=== PATIENT | female | born 1985 | race Caucasian/White ===

== ENCOUNTER 2023-10-18 13:46 | Emergency (ER) | payer BC, MEDICAID ==
[~2023-10-18] VITALS: Ht 167.6 cm; Wt 66.0 kg
[2023-10-18 13:57] VITALS: TEMP 98.3; O2SAT 100
[2023-10-18] MEDS: KETOROLAC 30MG/ML VIAL IV STA (14:17)
[2023-10-18] MEDS: SODIUM CHLORIDE 0.9% 1,000 ML IV ONE ×2 (14:45)
[2023-10-18] MEDS: ONDANSETRON HCL 4MG/2ML INJ IV STA (14:45)
[2023-10-18 15:42] LABS: HEMATOCRIT. 42.9 % (36.0-48.0); HEMOGLOBIN. 14.4 g/dL (12.0-16.0); MEAN CORPUSCULAR HEMOGLOBIN 36.1 pg (28.0-32.0); MEAN CORPUSCULAR HGB CONC 33.5 g/dL (31.0-37.0); MEAN CORPUSCULAR VOLUME 107.6 fL (81.0-99.0); MEAN PLATELET VOLUME 8.7 fl (7.4-10.4); PLATELET 120 x1000/uL (130-400); RED BLOOD CELL COUNT 3.99 mill/uL (4.2-5.4); RED CELL DISTRIBUTION WIDTH 13.4 % (11.6-14.6)
[2023-10-18 15:43] LABS: DIFFERENTIAL COMMENT 1
[2023-10-18 15:46] LABS: CHLORIDE 95 mEq/L (98-107); POTASSIUM 4.3 mEq/L (3.5-5.1); SODIUM 130 mEq/L (136-145)
[2023-10-18 15:47] LABS: CARBON DIOXIDE 15 mEq/L (21-32)
[2023-10-18 15:52] LABS: CREATININE 1.1 mg/dL (0.6-1.0)
[2023-10-18 15:53] LABS: GLUCOSE 128 mg/dL (70-105); UREA NITROGEN BLOOD 10 mg/dL (9-23)
[2023-10-18 15:54] LABS: ALANINE AMINOTRANSFERASE 82 IU/L (10-49); ALBUMIN 5.8 g/dL (3.2-4.8); ASPARTATE AMINOTRANSFERASE 106 IU/L (<34)
[2023-10-18 15:55] LABS: BILIRUBIN DIRECT 2.1 mg/dL (<=3.0); BILIRUBIN TOTAL 4.1 mg/dL (0.1-1.0)
[2023-10-18 15:58] LABS: HCG SCREEN NEGATIVE
[2023-10-18 16:07] LABS: ETHANOL BLOOD < 10 mg/dL (<10)
[2023-10-18 16:50] LABS: CLARITY URINE CLOUDY (CLEAR); COLOR URINE ORANGE (YELLOW); GLUCOSE URINE NEGATIVE (NEGATIVE); KETONES URINE 4+ (NEGATIVE); LEUKOCYTE ESTERASE URINE TRACE (NEGATIVE); NITRITE URINE POSITIVE (NEGATIVE); OCCULT BLOOD URINE 2+ (NEGATIVE); PROTEIN URINE 3+ (NEGATIVE); SPECIFIC GRAVITY URINE 1.024 (1.005-1.030)
[2023-10-18 17:08] LABS: *AMPHETAMINES SCREEN URINE NEGATIVE (NEGATIVE)
[2023-10-18 17:09] LABS: *BARBITURATES SCREEN URINE NEGATIVE (NEGATIVE); *BENZODIAZEPINES SCREEN URINE NEGATIVE (NEGATIVE); *COCAINE SCREEN URINE NEGATIVE (NEGATIVE); CANNABINOID URINE SCREEN PRESUMPTIVE POSITIVE (NEGATIVE); ECSTASY MDMA SCREEN URINE NEGATIVE (NEGATIVE); METHADONE URINE SCREEN NEGATIVE (NEGATIVE); OPIATES URINE SCREEN NEGATIVE (NEGATIVE); PHENCYCLIDINE URINE SCREEN NEGATIVE (NEGATIVE)
[2023-10-18 17:20] LABS: PLATELET ESTIMATE DECREASED
[2023-10-18] MEDS: SODIUM CHLORIDE 0.9% 500 ML IV ONE (17:30)
[2023-10-18 17:36] LABS: BACTERIA URINE 4+; SQUAMOUS EPITHELIAL CELL URINE 2+ /lpf (RARE/1+)
[2023-10-18 17:37] LABS: WBC URINE 0-2 /hpf (0-2)
[2023-10-18] MEDS: KETOROLAC 30MG/ML VIAL IV ONE (18:27)
[2023-10-18] MEDS: CEFTRIAXONE 1GM/50ML 50 ML IV ONE (18:33)
[2023-10-18 21:00] VITALS: BP 132/80; PULSE 113; RESP 24; O2SAT 99
== END 2023-10-18 21:36 | disposition left against medical advice (07) ==
LOC: ER 13:53 → EDBEDREQ 18:50 → EDBEDREQTM 18:50 → ER 21:36
DX: A41.9 Sepsis, unspecified organism (principal); R65.20 Severe sepsis without septic shock; N10 Acute pyelonephritis; E86.0 Dehydration
CPT/HCPCS: 80076; 80305; 80048; 81003; 80320; 84703; 83605; 83690; 85025; 36415; 71045; 76705; 93005; 96361; 96374; 96375; 99291; J0696; J1885; J2405; J7040; J7030; Z7610; G0480

== ENCOUNTER 2023-10-19 16:31 | Inpatient (IN) | payer BC, MEDICAID ==
[~2023-10-19] VITALS: Ht 165.1 cm; Wt 64.9 kg
[2023-10-19] MEDS ORDERED: ONDANSETRON HCL 4MG/2ML INJ IV ONE (18:15)
[2023-10-19] MEDS ORDERED: CEFTRIAXONE 1GM/50ML 50 ML IV ONE (18:15)
[2023-10-19 18:25] LABS: BASOPHILS % 0.3 % (0.0-2.0); DIFFERENTIAL COMMENT 0; EOSINOPHILS % 0.3 % (0.0-5.0); HEMATOCRIT. 38.8 % (36.0-48.0); HEMOGLOBIN. 13.3 g/dL (12.0-16.0); LYMPHOCYTES % 16.6 % (20.0-50.0); MEAN CORPUSCULAR HEMOGLOBIN 35.9 pg (28.0-32.0); MEAN CORPUSCULAR HGB CONC 34.2 g/dL (31.0-37.0); MEAN CORPUSCULAR VOLUME 104.7 fL (81.0-99.0); MEAN PLATELET VOLUME 9.7 fl (7.4-10.4); MONOCYTES % 10.8 % (2.0-8.0); PLATELET 125 x1000/uL (130-400); RED BLOOD CELL COUNT 3.71 mill/uL (4.2-5.4); RED CELL DISTRIBUTION WIDTH 13.4 % (11.6-14.6); WHITE BLOOD COUNT 7.2 x1000/uL (4.5-11.0)
[2023-10-19 18:33] LABS: CHLORIDE 96 mEq/L (98-107); POTASSIUM 3.2 mEq/L (3.5-5.1); SODIUM 132 mEq/L (136-145)
[2023-10-19 18:35] LABS: CALCIUM 10.4 mg/dL (8.7-10.4); CARBON DIOXIDE 25 mEq/L (21-32)
[2023-10-19 18:36] LABS: HCG SCREEN NEGATIVE
[2023-10-19 18:40] LABS: CREATININE 0.7 mg/dL (0.6-1.0); GLUCOSE 85 mg/dL (70-105); UREA NITROGEN BLOOD 11 mg/dL (9-23)
[2023-10-19 18:42] LABS: ALANINE AMINOTRANSFERASE 77 IU/L (10-49); ALBUMIN 5.4 g/dL (3.2-4.8); ASPARTATE AMINOTRANSFERASE 175 IU/L (<34); BILIRUBIN DIRECT 0.9 mg/dL (<=3.0); BILIRUBIN TOTAL 2.2 mg/dL (0.1-1.0); PROTEIN TOTAL 8.2 g/dL (6.0-8.3)
[2023-10-19] MEDS ORDERED: NITROGLYCERIN 0.4MG TABLET SL SL PRN (20:45)
[2023-10-19] MEDS ORDERED: MAGNESIUM/ALUMINUM HYDROXIDE/SIMETHICONE 30ML UDC PO PRN (20:45)
[2023-10-19] MEDS ORDERED: GUAIFENESIN 200MG/10ML SUGAR FREE UDC PO PRN (20:45)
[2023-10-19] MEDS ORDERED: KETOROLAC 15MG/ML VIAL IV PRN (20:45)
[2023-10-19] MEDS ORDERED: DOCUSATE SODIUM 100MG CAPSULE PO PRN (20:45)
[2023-10-19] MEDS ORDERED: ACETAMINOPHEN 325MG TABLET PO PRN ×2 (20:45)
[2023-10-19] MEDS ORDERED: IPRATROPIUM/ALBUTEROL 0.5-3(2.5)MG/3ML NEB NEB PRN (20:45)
[2023-10-19] MEDS ORDERED: CLONIDINE 0.1MG TABLET PO PRN (20:45)
[2023-10-19] MEDS ORDERED: ONDANSETRON HCL 4MG/2ML INJ IV PRN (20:45)
[2023-10-19] MEDS: DEXT 5%/LACTATED RINGERS 1,000 ML IV SCH (21:00)
[2023-10-19] MEDS ORDERED: ZOLPIDEM TARTRATE 5MG TABLET PO PRN (21:00)
[2023-10-19] MEDS: SODIUM CHLORIDE 0.9% 1,000 ML IV ONE (22:20)
[2023-10-19] MEDS: ENOXAPARIN 40MG/0.4ML SYR SUBCUT SCH (22:20)
[2023-10-19] MEDS: PANTOPRAZOLE SODIUM 40 MG/VIAL IV SCH (22:33)
[2023-10-19] MEDS: ONDANSETRON HCL 4MG/2ML INJ IV NR (22:33)
[2023-10-19 23:12] LABS: CLARITY URINE CLOUDY (CLEAR); COLOR URINE DARK YELLOW (YELLOW); GLUCOSE URINE NEGATIVE (NEGATIVE); KETONES URINE 3+ (NEGATIVE); LEUKOCYTE ESTERASE URINE 1+ (NEGATIVE); NITRITE URINE NEGATIVE (NEGATIVE); OCCULT BLOOD URINE NEGATIVE (NEGATIVE); PROTEIN URINE 2+ (NEGATIVE); SPECIFIC GRAVITY URINE 1.023 (1.005-1.030)
[2023-10-19 23:30] LABS: BACTERIA URINE 4+; RBC URINE 0-2 /hpf (0-2); SQUAMOUS EPITHELIAL CELL URINE 2+ /lpf (RARE/1+)
[2023-10-19 23:38] LABS: *AMPHETAMINES SCREEN URINE NEGATIVE (NEGATIVE); *BARBITURATES SCREEN URINE NEGATIVE (NEGATIVE); *BENZODIAZEPINES SCREEN URINE NEGATIVE (NEGATIVE)
[2023-10-19 23:39] LABS: *COCAINE SCREEN URINE NEGATIVE (NEGATIVE); CANNABINOID URINE SCREEN PRESUMPTIVE POSITIVE (NEGATIVE); ECSTASY MDMA SCREEN URINE NEGATIVE (NEGATIVE); METHADONE URINE SCREEN NEGATIVE (NEGATIVE); OPIATES URINE SCREEN NEGATIVE (NEGATIVE); PHENCYCLIDINE URINE SCREEN NEGATIVE (NEGATIVE)
[2023-10-19] MEDS: CEFTRIAXONE 1GM/50ML 50 ML IV NR (23:45)
[2023-10-19] MEDS: IOHEXOL-350 100 ML BOTTLE ONE (23:46)
[2023-10-20] VITALS: BP 123/83; PULSE 78; RESP 16; TEMP 36.114; O2SAT 97
[2023-10-20] LABS: IRON 231 ug/dL (50-170)
[2023-10-20 00:01] LABS: TRIGLYCERIDE 111 mg/dL (0-150)
[2023-10-20 00:02] LABS: CHOLESTEROL 246 mg/dL (<200); LDL CHOLESTEROL 145 mg/dL (5-100)
[2023-10-20 00:03] LABS: HDL CHOLESTEROL 73 mg/dL (>65); TOTAL IRON BINDING CAPACITY 237 ug/dl (250-425)
[2023-10-20 00:06] LABS: T4 FREE 1.53 ng/dL (0.89-1.76); THYROID STIMULATING HORMONE 1.11 uIU/mL (0.55-4.78)
[2023-10-20 00:16] LABS: ETHANOL BLOOD < 10 mg/dL (<10)
[2023-10-20 00:19] LABS: VITAMIN B12 SERUM 1190 pg/mL (211-911)
[2023-10-20 01:35] VITALS: BP 123/83; PULSE 86; RESP 17; TEMP 36.1956
[2023-10-20 04:00] VITALS: BP 118/78; PULSE 78; RESP 16; TEMP 36.50292; O2SAT 100
[2023-10-20] MEDS ORDERED: POTASSIUM CHLORIDE 20 MEQ in DEXT 5% WATER 90 ML IV ONE (06:15)
[2023-10-20] MEDS ORDERED: POTASSIUM CHLORIDE 20MEQ/PACKET PO NR (06:15)
[2023-10-20 07:35] LABS: BASOPHILS % 0.5 % (0.0-2.0); DIFFERENTIAL COMMENT 0; EOSINOPHILS % 1.6 % (0.0-5.0); HEMATOCRIT. 32.5 % (36.0-48.0); HEMOGLOBIN. 11.1 g/dL (12.0-16.0); LYMPHOCYTES % 29.4 % (20.0-50.0); MEAN CORPUSCULAR HEMOGLOBIN 35.9 pg (28.0-32.0); MEAN CORPUSCULAR HGB CONC 34.2 g/dL (31.0-37.0); MEAN CORPUSCULAR VOLUME 105.2 fL (81.0-99.0); MEAN PLATELET VOLUME 10.3 fl (7.4-10.4); MONOCYTES % 11.2 % (2.0-8.0); NEUTROPHILS % 57.3 % (40.0-76.0); PLATELET 92 x1000/uL (130-400); RED BLOOD CELL COUNT 3.09 mill/uL (4.2-5.4); WHITE BLOOD COUNT 4.2 x1000/uL (4.5-11.0)
[2023-10-20 07:40] LABS: CHLORIDE 103 mEq/L (98-107); SODIUM 138 mEq/L (136-145)
[2023-10-20 07:42] LABS: CALCIUM 8.7 mg/dL (8.7-10.4); CARBON DIOXIDE 26 mEq/L (21-32)
[2023-10-20 07:47] LABS: CREATININE 0.5 mg/dL (0.6-1.0); GLUCOSE 77 mg/dL (70-105); UREA NITROGEN BLOOD 8 mg/dL (9-23)
[2023-10-20 07:48] LABS: ALANINE AMINOTRANSFERASE 73 IU/L (10-49)
[2023-10-20 07:49] LABS: ALBUMIN 3.9 g/dL (3.2-4.8); ASPARTATE AMINOTRANSFERASE 188 IU/L (<34)
[2023-10-20 07:50] LABS: PROTEIN TOTAL 6.2 g/dL (6.0-8.3)
[2023-10-20 07:52] LABS: POTASSIUM 2.8 mEq/L (3.5-5.1)
[2023-10-20 07:53] LABS: PHOSPHORUS 0.6 mg/dL (2.5-4.9)
[2023-10-20 08:00] VITALS: BP 117/78; PULSE 70; RESP 19; TEMP 36.72516; O2SAT 99
[2023-10-20] MEDS ORDERED: POTASSIUM CHLORIDE 40 MEQ in DEXT 5% WATER 230 ML IV ONE (08:00)
[2023-10-20] MEDS ORDERED: KCL 20MEQ/100ML PREMIX 100 ML IV ONE (08:00)
[2023-10-20] MEDS: KCL 20MEQ/100ML X 2 FOR TOTAL KCL 40MEQ/200ML IV SCH (09:44)
[2023-10-20 12:00] VITALS: BP 103/71; PULSE 82; RESP 18; TEMP 36.61404; O2SAT 99
[2023-10-20] MEDS: POTASSIUM PHOSPHATE 30 MMOL in SODIUM CHLORIDE 0.9% 490 ML IV NR (15:10)
[2023-10-20 16:00] VITALS: BP 111/74; PULSE 114; RESP 18; TEMP 37.503; O2SAT 99
[2023-10-21 04:00] VITALS: BP 114/78; PULSE 76; RESP 18; TEMP 37.39188; O2SAT 100
[2023-10-21 07:22] LABS: CALCIUM 8.9 mg/dL (8.7-10.4); CARBON DIOXIDE 28 mEq/L (21-32); CHLORIDE 105 mEq/L (98-107); POTASSIUM 2.9 mEq/L (3.5-5.1); SODIUM 140 mEq/L (136-145)
[2023-10-21 07:27] LABS: CREATININE 0.6 mg/dL (0.6-1.0)
[2023-10-21 07:28] LABS: GLUCOSE 108 mg/dL (70-105)
[2023-10-21 07:30] LABS: PHOSPHORUS 2.4 mg/dL (2.5-4.9)
[2023-10-21 07:35] LABS: UREA NITROGEN BLOOD < 5 mg/dL (9-23)
[2023-10-21 07:43] LABS: BASOPHILS % 0.9 % (0.0-2.0); DIFFERENTIAL COMMENT 0; HEMATOCRIT. 33.9 % (36.0-48.0); HEMOGLOBIN. 11.4 g/dL (12.0-16.0); LYMPHOCYTES % 33.1 % (20.0-50.0); MEAN CORPUSCULAR HEMOGLOBIN 35.8 pg (28.0-32.0); MEAN CORPUSCULAR HGB CONC 33.5 g/dL (31.0-37.0); MEAN CORPUSCULAR VOLUME 106.6 fL (81.0-99.0); MEAN PLATELET VOLUME 9.9 fl (7.4-10.4); PLATELET 108 x1000/uL (130-400); RED BLOOD CELL COUNT 3.18 mill/uL (4.2-5.4); RED CELL DISTRIBUTION WIDTH 13.2 % (11.6-14.6); WHITE BLOOD COUNT 2.9 x1000/uL (4.5-11.0)
[2023-10-21 08:00] VITALS: BP 112/76; PULSE 74; RESP 18; TEMP 36.89184; O2SAT 100
[2023-10-21 12:00] VITALS: BP 116/70; PULSE 70; RESP 18; TEMP 36.6696; TEMP 36.66960; O2SAT 100
[2023-10-21] MEDS ORDERED: POTASSIUM CHLORIDE 20MEQ TABLET SR PO NR (12:15)
[2023-10-21 12:17] VITALS: BP 122/76; PULSE 75; TEMP 98.2; O2SAT 99
[2023-10-21] MEDS ORDERED: MAGNESIUM 2 G PREMIX 50 ML IV NR (13:30)
[2023-10-21] MEDS ORDERED: POTASSIUM PHOSPHATE 15 MMOL in DEXT 5% WATER 245 ML IV NR (14:00)
[2023-10-21] MEDS ORDERED: POTASSIUM PHOSPHATE 30 MMOL in DEXT 5% WATER 490 ML IV NR (14:00)
== END 2023-10-21 13:25 | disposition home or self-care (01) | DRG 241 ==
LOC: ER 16:31 → 6EST 19:34 → EDBEDREQTM 19:46 → EDBEDREQ 19:46 → 6EST 10-20 10:47
PROVIDERS: ADMIT Internal Medicine; ATTEND Internal Medicine
DX: K29.70 Gastritis, unspecified, without bleeding (principal); E87.1 Hypo-osmolality and hyponatremia; E87.6 Hypokalemia; N10 Acute pyelonephritis; F12.10 Cannabis abuse, uncomplicated
CPT/HCPCS: 36415; 74177; 80048; 80053; 80061; 80076; 80305; 80320; 81003; 82607; 82746; 83036; 83540; 83550; 83735; 84100; 84439; 84443; 84703; 85025; 86850; 86900; 93970; 99285; J0696; J1650; J2405; J2470; J3475; J3480; J3490; J7030; J7040; J7060; Q9967; G0480